=== PATIENT | male | born 1960 | race Caucasian/White ===

== ENCOUNTER 2023-09-05 01:19 | Inpatient (IN) | payer OTHER ==
[2023-09-05 01:48] LABS: #Basophils 0.04 10x3/uL (0.0-0.2); %Basophils 0.4 % (0.0-1.0); %Eosinophils 2.3 % (0.0-10.0); %Lymphocytes 31.8 % (21.0-51.0); %Monocytes 7.6 % (0.0-10.0); %Neutrophils 57.3 % (42.0-75.0); Hemoglobin 16.2 g/dL (14.0-18.0); Mean Corpuscular HGB CONC 34.5 g/dL (32.0-36.0); Mean Corpuscular Hemoglobin 30.2 pg (27.0-31.0); Mean Corpuscular Volume 87.7 fL (78.0-98.0); Mean Platelet Volume 10.8 fL (7.4-10.4); Platelet Count 224 10x3/uL (130-400); RBC Distribution Width 12.3 % (11.5-14.5); Red Blood Cell (RBC) Count 5.36 mill/uL (4.70-6.10)
[2023-09-05 02:10] LABS: ALT (SGPT) 35 U/L (8-55); AST (SGOT) 22 U/L (5-34); Albumin 3.6 g/dL (3.4-4.8); Alkaline Phosphatase 72 U/L (40-110); Anion Gap 14 mmol/L (10-20); BUN (Urea Nitrogen) 21 mg/dL (8.4-25.7); Bilirubin, Total 0.6 mg/dL (0.2-1.2); Calc. Creatinine Clearance 0 mL/min (70-130); Calcium 9.3 mg/dL (7.8-10.44); Carbon Dioxide 20 mmol/L (23-31); Chloride 108 mmol/L (98-107); Estimated GFR 92; Globulin 2.8 g/dL (2.4-3.5); Glucose 114 mg/dL (80-115); Potassium 3.9 mmol/L (3.5-5.1); Protein, Total 6.4 g/dL (5.8-8.1); Sodium 138 mmol/L (136-145)
[2023-09-05 02:16] LABS: Troponin I 0.045 ng/mL (< 0.028)
[2023-09-05] MEDS ORDERED: Nitroglycerin 0.4 MG TAB (25 Tab Bottle) SL PRN (02:33)
[2023-09-05] MEDS ORDERED: Heparin 10,000 UNITS/ 10 ML VIAL SLOW IVP SCH (02:45)
[2023-09-05] MEDS ORDERED: Heparin 25,000 units/D5W 500 ML ONE (02:48)
[2023-09-05 03:09] LABS: Hematocrit 45.7 % (42.0-52.0); Hemoglobin 15.7 g/dL (14.0-18.0); Platelet Count 221 10x3/uL (130-400)
[2023-09-05] MEDS: Heparin 25,000 units/D5W 500 ML IVPB SCH (04:02)
[2023-09-05 04:14] LABS: Cardiac Risk 5.2 (Less than 4.5)
[2023-09-05 04:26] VITALS: BMI 25.2
[2023-09-05 06:26] LABS: Critical Call Chem Troponin I NUR.SM15@0625; Troponin I 0.208 ng/mL (< 0.028)
[2023-09-05] MEDS ORDERED: Morphine 4 MG/ML VIAL SLOW IVP PRN (07:33)
[2023-09-05] MEDS ORDERED: Morphine 2 MG/ML VIAL SLOW IVP PRN (07:33)
[2023-09-05] MEDS: Metoprolol Tartrate 25 MG TAB PO SCH (08:12)
[2023-09-05] MEDS: Aspirin Chewable 81 MG TAB PO SCH (08:12)
[2023-09-05 08:54] LABS: Troponin I 0.905 ng/mL (< 0.028)
[2023-09-05] MEDS ORDERED: Heparin 10,000 UNITS/ 10 ML VIAL ONE (10:41)
[2023-09-05] MEDS ORDERED: Communication Order-Pharmacy FS SCH (11:00)
[2023-09-05] MEDS: Sodium Chloride 0.9% 1,000 ML IV SCH (11:05)
[2023-09-05] MEDS: predniSONE 50 MG TAB PO SCH (11:05)
[2023-09-05] MEDS ORDERED: diphenhydrAMINE 50 MG/ML VIAL ONE (11:25)
[2023-09-05] MEDS ORDERED: fentaNYL 50 mcg/mL 1 mL Vial ONE ×2 (11:26→12:13)
[2023-09-05] MEDS ORDERED: Famotidine/PF 20 mg/2ml Vial ONE (11:26)
[2023-09-05] MEDS ORDERED: Midazolam HCl 2 mg/2 ml Vial ONE (11:26)
[2023-09-05] MEDS ORDERED: Hydrocortisone Sod Succ/PF 100 mg/2 ml Vial ONE (11:26)
[2023-09-05] MEDS ORDERED: Nitroglycerin 50 MG/250 ML BOT 250 ML ONE (12:04)
[2023-09-05] MEDS ORDERED: TICAGRELOR 90 MG TABLET ONE (12:11)
[2023-09-05] MEDS: Sodium Chloride 0.9% 500 ML IV SCH (14:20)
[2023-09-05] MEDS: TICAGRELOR 90 MG TABLET PO SCH (21:35)
[2023-09-05] MEDS: Rosuvastatin 20 MG TAB PO SCH (21:36)
[2023-09-06 05:05] LABS: #Basophils Less than 0.03 10x3/uL (0.0-0.2); %Basophils 0.1 % (0.0-1.0); %Eosinophils 0.5 % (0.0-10.0); %Lymphocytes 13.5 % (21.0-51.0); %Monocytes 7.3 % (0.0-10.0); %Neutrophils 78.1 % (42.0-75.0); Hematocrit 45.9 % (42.0-52.0); Mean Corpuscular HGB CONC 34.9 g/dL (32.0-36.0); Mean Corpuscular Hemoglobin 30.4 pg (27.0-31.0); Mean Corpuscular Volume 87.3 fL (78.0-98.0); Platelet Count 231 10x3/uL (130-400); RBC Distribution Width 12.4 % (11.5-14.5); Red Blood Cell (RBC) Count 5.26 mill/uL (4.70-6.10)
[2023-09-06 05:24] LABS: ALT (SGPT) 28 U/L (8-55); AST (SGOT) 27 U/L (5-34); Albumin 3.3 g/dL (3.4-4.8); Alkaline Phosphatase 69 U/L (40-110); Anion Gap 14 mmol/L (10-20); BUN (Urea Nitrogen) 15 mg/dL (8.4-25.7); Bilirubin, Total 1.4 mg/dL (0.2-1.2); Calc. Creatinine Clearance 91 mL/min (70-130); Calcium 8.7 mg/dL (7.8-10.44); Carbon Dioxide 21 mmol/L (23-31); Chloride 108 mmol/L (98-107); Estimated GFR 96; Globulin 2.5 g/dL (2.4-3.5); Glucose 110 mg/dL (80-115); Potassium 3.7 mmol/L (3.5-5.1); Protein, Total 5.8 g/dL (5.8-8.1); Sodium 139 mmol/L (136-145)
[2023-09-06] MEDS: Clopidogrel Bisulfate 75 MG TAB PO SCH (08:36)
[2023-09-06 08:43] VITALS: TEMP 97.6
[2023-09-06 12:26] VITALS: BP 142/85
== END 2023-09-06 16:38 | disposition home or self-care (01) | DRG 322 ==
LOC: ERS 01:19 → 2SW 02:19 → OBSVTOIN 10:42
PROVIDERS: ADMIT Student in an Organized Health Care Education/Training Program; ATTEND Family Medicine
PROC: 027035Z Dilation of Coronary Artery, One Artery with Two Drug-eluting Intraluminal Devices, Percutaneous Approach (ICD-10-PCS; principal; 2023-09-05)
PROC: 4A023N7 Measurement of Cardiac Sampling and Pressure, Left Heart, Percutaneous Approach (ICD-10-PCS; 2023-09-05)
PROC: B2111ZZ Fluoroscopy of Multiple Coronary Arteries using Low Osmolar Contrast (ICD-10-PCS; 2023-09-05)
DX: I21.09 ST elevation (STEMI) myocardial infarction involving other coronary artery of anterior wall (principal); I20.0 Unstable angina; R03.0 Elevated blood-pressure reading, without diagnosis of hypertension; Z91.013 Allergy to seafood
CPT/HCPCS: 36415; 80053; 80061; 84484; 85025; 85347; 85730; 92928; 93005; 93010; 93306; 93454; 93798; 94760; 99152; 99153; C1725; C1760; C1769; C1874; C1887; C9600; J1200; J1644; J1720; J2250; J3010; J7030; J7050; J7512; S0028